=== PATIENT | female | born 1995 | race Hispanic/Latino ===

== ENCOUNTER 2021-05-15 08:31 | Inpatient (IN) | payer MEDICAID ==
[~2021-05-15 08:31] MED LIST: Bupivacaine 0.25% 10 ML SDV ONE
[2021-05-15] MEDS ORDERED: Nalbuphine 10 MG/1 ML Vial IVPUSH PRN (08:42)
[2021-05-15] MEDS ORDERED: Sodium Chloride 0.9% 10 ML Syringe FLUSH PRN (08:42)
[2021-05-15] MEDS ORDERED: Oxytocin/Lactated Ringers 10 UNIT/1,000 ML BAG IV SCH (08:45)
[2021-05-15] MEDS ORDERED: fentaNYL 100 MCG/2 ML SDV EPIDUR PRN (08:48)
[2021-05-15] MEDS ORDERED: Ondansetron 4 MG/2 ML SDV IVPUSH PRN (08:48)
[2021-05-15] MEDS ORDERED: ePHEDrine 50 MG/ML SDV IVPUSH PRN (08:48)
--- NOTE | 2021-05-15 08:50 | PCM.PREANE ---
Preanesthetic Assessment - Procedure Proposed Procedure: Epidural - Anesthesia/Transfusion/Family Hx Anesthesia History: Prior Anesthesia Without Reaction Family History of Anesthesia Reaction: No Transfusion History: No Prior Transfusion(s) Intubation History: Unknown - Review of Systems General: No Symptoms Pulmonary: No Symptoms Cardiovascular: No Symptoms Gastrointestinal: No Symptoms (GERD), Nausea, Vomiting Neurological: No Symptoms Other: Reports: None - Physical Assessment NPO Status Date: 05/14/21 NPO Status Time: 23:00 Vital Signs: HR: 93 Sat: 98% Temp: 98.5 B/P: 143/88 Resp: 20 Height: 1.63 m Weight: 83.461 kg ASA Class: 2 Mental Status: Alert & Oriented x3 Airway Class: Mallampati = 2 Dentition: Reports: Normal Dentition, Caries Thyro-Mental Finger Breadths: 3 Mouth Opening Finger Breadths: 3 ROM/Head Extension: Full Lungs: Clear to Auscultation, Normal Respiratory Effort Cardiovascular: Regular Rate, Regular Rhythm, No Murmurs - Lab Values: All labs reviewed and noted and within acceptable ranges to proceed with epidural. - Allergies Allergies/Adverse Reactions: Allergies Allergy/AdvReac Type Severity Reaction Status Date / Time No Known Allergies Allergy Verified 05/15/21 08:59 - Anesthesia Plan Pre-Op Medication Ordered: None - Acknowledgements Anesthesia Type Planned: Epidural Pt an Appropriate Candidate for the Planned Anesthesia: Yes Alternatives and Risks of Anesthesia Discussed w Pt/Guardian: Yes Pt/Guardian Understands and Agrees with Anesthesia Plan: Yes PreAnesthesia Questionnaire - CURRENT (IN HOUSE) MEDS Current Meds: Current Medications Oxytocin/Lactated Ringer's (Pitocin In Lr 10 Units/1,000 Ml) 10 unit in 1,000 mls @ 100 mls/hr IV .CONTINUOUS MIREYA Lactated Ringer's (Ringers, Lactated) 1,000 mls @ 100 mls/hr IV ASDIRECTED MIREYA Nalbuphine HCl (Nalbuphine 10 Mg/1 Ml Vial) 10 mg IVPUSH Q2H PRN PRN Reason: Pain Sodium Chloride (Sodium Chloride 0.9% 10 Ml Syringe) 10 ml FLUSH ASDIRECTED PRN PRN Reason: Keep Vein Open
[2021-05-15] MEDS ORDERED: Bupivacaine/fentaNYL/NS 100 ML Bag EPIDUR SCH (09:00)
[2021-05-15] MEDS: Lactated Ringers 1,000 ML IV SCH ×3 (09:26→10:08)
--- NOTE | 2021-05-15 10:42 | PCM.LDHP ---
<Darron Cohen - Last Filed: 05/15/21 10:42> L&D History of Present Illness - General Date of Service: 05/15/21 Admit Problem/Dx: Admission Diagnosis/Problem Admission Diagnosis/Problem 05/15/21 10:26 39 Week Gestation, spontaneous labor Source of Information: Patient History Limitations: Reports: No Limitations - History of Present Illness Introduction:: HPI:matthew Poole is a 25-year-old 1 para 0 female admitted on 05/15/2021 at 39-0/7 weeks gestational age with an RICK of 05/22/2021 for induction of labor. She arrived around 0900 hrs for admission. She reports she was woken up from contractions this morning. Contractions were felt every 5 mins and started to become more painful. She reports some leakage of fluid and that her mucus plug passed while at the hospital. heart tones are generally reassuring with good variability. [employer] Hx: Patient menarche at age 12. Her cycles are irregular ranging from 28-60 days in length. She was not on control at time of contraception and was using Clomiphene for fertility assistance. LMP 08/15/2020 which was certain. RICK of 05/22/2021 was determined by LMP. Anatomy ultrasound was conducted at 20w3d with no concerning findings. Patient denies any STI in the past. Her last pap smear was conducted in March 2020 with no abnormal findings. Course: Patient is . Patient had consistent care with Dr. Min at [facility] in [place]. She was seen on a regular basis. Weight gain is from 159 lbs at 12-2/7 weeks to 184 lbs at 38-5/7 weeks for a total weight gain of 25 pounds. Fundal height growth has been appropriate and vital signs have been stable throughout . Patient reports no allergies. Denies any other past medical conditions. She plans to attempt breast and bottle feed. She has received an epidrual Laboratory Testing in : First trimester testing showed blood is A+ with negative antibody screen. Hemoglobin was 10.5 g/dL and platelets were 360,000 at first visit. Pap test was not conducted. She is rubella immune. RPR was non reactive. Hepatitis B surface Ag, HCV, chlamydia, gonorrhea, and HIV were negative. UA was contaminated. Second and Third Trimester Testing showed a hemoglobin of 11.8g/dL, platelets of 370,000. Diabetic screen test was normal at 129. Group B strep screen was negative. Allergies: Non Reported Medications: 1. Vit-Fe Fumarate-FA 1 tablet p.o daily 2. Ferrous Sulfate 1 table p.o daily 3. Folic acid 800 mcg tablet p.o daily 4. Ondansetron 1-2 (4-8mg) p.o prn Past Medical History: None reported Past surgical History: Rhinoplasty, no issues reported with general anesthesia. Pain Score: 9 - Related Data Allergies/Adverse Reactions: Allergies Allergy/AdvReac Type Severity Reaction Status Date / Time No Known Allergies Allergy Verified 05/15/21 08:59 Past Medical History [employer] History: Reports: - Past Surgical History HEENT Surgical History: Reports: Other (See Below) Other HEENT Surgeries/Procedures: Rhinoplasty Social & Family History - Family History Family Medical History: No Pertinent Family History - Tobacco Use Tobacco Use Status *Q: Never Tobacco User - Alcohol Use Alcohol Use History: No - Recreational Drug Use Recreational Drug Use: No - Living Situation & Occupation Living situation: Reports: Occupation: Unemployed H&P Review of Systems - Review of Systems: Review Of Systems: See Below General: Reports: No Symptoms HEENT: Reports: No Symptoms Pulmonary: Reports: No Symptoms Cardiovascular: Reports: No Symptoms Gastrointestinal: Reports: Nausea, Vomiting (x3 prior to admission) Genitourinary: Reports: No Symptoms Musculoskeletal: Reports: Other (Hip pain associated with ) Skin: Reports: No Symptoms Psychiatric: Reports: No Symptoms Neurological: Reports: No Symptoms Hematologic/Lymphatic: Reports: No Symptoms Immunologic: Reports: No Symptoms L&D Exam - Exam Exam: See Below - Vital Signs Vital Signs: Last Vital Signs Temp 98.5 F 05/15/21 08:42 Pulse Resp 14 05/15/21 08:42 BP 143/88 H 05/15/21 08:42 Pulse Ox 98 05/15/21 08:42 Weight: 83.461 kg - OB Specific Fundal Height In cm: 39 Contraction Intensity: Moderate Movement: Active Heart Tones: Present Heart Rate (FHR) Variability: Moderate (6-25 bpm) - Exam General: Alert, Oriented HEENT: Conjunctiva Clear, EOMI, Hearing Intact, Mucosa Moist & [place] Neck: Supple, Trachea Midline Lungs: Clear to Auscultation, Normal Respiratory Effort Cardiovascular: Regular Rate, Regular Rhythm, Normal S1, Normal S2 GI/Abdominal Exam: Normal Bowel Sounds, Soft, Non-Tender, Other (Gravid appearing) Genitourinary: Cervical dilitation (8 cm) Back Exam: Full Range of Motion Extremities: Normal Inspection, Normal Range of Motion, Non-Tender, No Pedal Edema, Normal Capillary Refill Skin: Warm, Dry, Intact Neurological: Cranial Nerves Intact, Normal Speech, Sensation Intact Psychiatric: Alert, Normal Affect, Normal Mood - Patient Data Lab Results Last 24 hrs: Laboratory Results - last 24 hr 05/15/21 05/15/21 05/15/21 Range/Units 08:53 08:55 08:55 WBC 18.98 H (3.98-10.04) K/mm3 RBC 4.32 (3.98-5.22) M/mm3 Hgb 13.4 (11.2-15.7) gm/dl Hct 40.9 (34.1-44.9) % MCV 94.7 (79.4-94.8) fl MCH 31.0 (25.6-32.2) pg MCHC 32.8 (32.2-35.5) g/dl RDW Std Deviation 48.2 H (36.4-46.3) fL Plt Count 351 (182-369) K/mm3 MPV 10.4 (9.4-12.3) fl SARS-CoV-2 RNA (BLAS) Negative (NEGATIVE) Blood Type A POSITIVE Gel Antibody Screen Negative Result Diagrams: 05/15/21 08:55 - Problem List (1) SNOMED Code(s): 69762755 ICD Code: Z34.90 - ENCNTR FOR SUPRVSN OF NORMAL , UNSP, UNSP TRIMESTER Status: Acute Priority: Medium Current Visit: Yes Qualifiers: Weeks of gestation: 39 weeks Qualified Code(s): Z3A.39 - 39 weeks gestation of (2) Spontaneous onset of labor SNOMED Code(s): 67919322 ICD Code: [id number] - Status: Acute Priority: Medium Current Visit: Yes Orders Last 24hrs: Active Orders 24 hr Category Date Time Status Activity as Tolerated [RC] PFP Care 05/15/21 08:42 Active Communication Order [RC] ASDIRECTED Care 05/15/21 08:42 Active Heart Tones [RC] ASDIRECTED Care 05/15/21 08:43 Active Non Stress Test [RC] PER UNIT ROUTINE Care 05/15/21 08:42 Active Notify Provider [RC] ASDIRECTED Care 05/15/21 08:48 Active Notify Provider [RC] PFP Care 05/15/21 08:42 Active Notify Provider [RC] PRN Care 05/15/21 08:42 Active Oxygen Therapy [RC] ASDIRECTED Care 05/15/21 08:48 Active Peripheral IV Care [RC] . DIRECTED Care 05/15/21 08:43 Active Pulse Oximetry [RC] ASDIRECTED Care 05/15/21 08:48 Active Vital Signs [RC] PER UNIT ROUTINE Care 05/15/21 08:42 Active Regular Diet [DIET] Diet 05/15/21 Lunch Active PATIENT RETYPE [BBK] Routine Lab 05/15/21 09:59 Ordered RAPID PLASMA REAGIN,RPR [CHEM] Routine Lab 05/15/21 08:55 Received Bupivacaine/fentaNYL/NS [fentaNYL/Bupivacaine/NS 2 MCG- Med 05/15/21 09:00 Active 0.125% 100 ML] 100 ml EPIDUR ASDIRECTED Lactated Ringers [Ringers, Lactated] 1,000 ml Med 05/15/21 08:45 Active IV ASDIRECTED Nalbuphine [Nubain] Med 05/15/21 08:42 Active 10 mg IVPUSH Q2H PRN Ondansetron [Zofran] Med 05/15/21 08:48 Active 4 mg IVPUSH ONETIME PRN Oxytocin/Lactated Ringers [Pitocin in LR 10 Units/1,000 Med 05/15/21 08:45 Active ML] 10 unit in 1,000 ml IV .CONTINUOUS Phenylephrine HCl In 0.9% NaCl [Phenylephrine 1 MG/10 Med 05/15/21 08:48 Active ML-NS] 0.1 mg IVPUSH Q10M PRN Sodium Chloride 0.9% [Saline Flush] Med 05/15/21 08:42 Active 10 ml FLUSH ASDIRECTED PRN ePHEDrine [ePHEDrine sulfate] Med 05/15/21 08:48 Active 5 mg IVPUSH ASDIRECTED PRN fentaNYL [Sublimaze] Med 05/15/21 08:48 Active 100 mcg EPIDUR Q3H PRN Electronic Heart Tones Ext w TOCO [WOMSER] Oth 05/15/21 08:42 Ordered Routine Electronic Heart Tones Internal [WOMSER] Per Unit Oth 05/15/21 08:42 Ordered Routine Peripheral IV Insertion Adult [OM.PC] Routine Oth 05/15/21 08:42 Ordered Resuscitation Status Routine Resus Stat 05/15/21 08:42 Ordered Medication Orders Ephedrine Sulfate (Ephedrine 50 Mg/Ml Sdv) 5 mg IVPUSH ASDIRECTED PRN PRN Reason: Hypotension Fentanyl (Fentanyl 100 Mcg/2 Ml Sdv) 100 mcg EPIDUR Q3H PRN PRN Reason: Pain Last Admin: 05/15/21 09:25 Dose: 100 mcg Documented by: OC Fentanyl/Bupivacaine HCl (Bupivacaine/Fentanyl/Ns 100 Ml Bag) 100 ml EPIDUR ASDIRECTED [facility] Last Admin: 05/15/21 09:26 Dose: 100 ml Documented by: OC Oxytocin/Lactated Ringer's (Pitocin In Lr 10 Units/1,000 Ml) 10 unit in 1,000 mls @ 100 mls/hr IV .CONTINUOUS [facility] Lactated Ringer's (Ringers, Lactated) 1,000 mls @ 100 mls/hr IV ASDIRECTED [facility] Last Admin: 05/15/21 10:08 Dose: 100 mls/hr Documented by: Infusion: 05/15/21 10:08 Dose: 100 mls/hr Documented by: Admin: 05/15/21 10:07 Dose: 100 mls/hr Documented by: Infusion: 05/15/21 10:07 Dose: 100 mls/hr Documented by: Admin: 05/15/21 09:26 Dose: 100 mls/hr Documented by: OC Miscellaneous Medication (Phenylephrine Hcl In 0.9% Nacl 1 Mg/10 Ml Syringe) 0.1 mg IVPUSH Q10M PRN PRN Reason: Hypotension Nalbuphine HCl (Nalbuphine 10 Mg/1 Ml Vial) 10 mg IVPUSH Q2H PRN PRN Reason: Pain Ondansetron HCl (Ondansetron 4 Mg/2 Ml Sdv) 4 mg IVPUSH ONETIME PRN PRN Reason: Nausea/Vomiting Sodium Chloride (Sodium Chloride 0.9% 10 Ml Syringe) 10 ml FLUSH ASDIRECTED PRN PRN Reason: Keep Vein Open <Amina Gomez - Last Filed: 05/15/21 12:17> L&D History of Present Illness - General Admit Problem/Dx: Patient Status Order with Admit Dx/Problem 05/15/21 10:54 Admission Status [Patient Status] [ADT] Routine Admission Diagnosis/Problem Admission Diagnosis/Problem L&D Exam - Vital Signs Vital Signs: Last Vital Signs Temp 36.9 C 05/15/21 08:42 Pulse Resp 14 05/15/21 08:42 BP 143/88 H 05/15/21 08:42 Pulse Ox 98 05/15/21 08:42 - Patient Data Lab Results Last 24 hrs: Laboratory Results - last 24 hr 05/15/21 05/15/21 05/15/21 Range/Units 08:53 08:55 08:55 WBC 18.98 H (3.98-10.04) K/mm3 RBC 4.32 (3.98-5.22) M/mm3 Hgb 13.4 (11.2-15.7) gm/dl Hct 40.9 (34.1-44.9) % MCV 94.7 (79.4-94.8) fl MCH 31.0 (25.6-32.2) pg MCHC 32.8 (32.2-35.5) g/dl RDW Std Deviation 48.2 H (36.4-46.3) fL Plt Count 351 (182-369) K/mm3 MPV 10.4 (9.4-12.3) fl SARS-CoV-2 RNA (BLAS) Negative (NEGATIVE) Blood Type A POSITIVE Gel Antibody Screen Negative Result Diagrams: 05/15/21 08:55 Problem List Initiated/Reviewed/Updated: Yes Orders Last 24hrs: Active Orders 24 hr Category Date Time Status Admission Status [Patient Status] [ADT] Routine ADT 05/15/21 10:54 Active Activity as Tolerated [RC] PFP Care 05/15/21 08:42 Active Communication Order [RC] ASDIRECTED Care 05/15/21 08:42 Active Non Stress Test [RC] PER UNIT ROUTINE Care 05/15/21 08:42 Active Notify Provider [RC] ASDIRECTED Care 05/15/21 08:48 Active Notify Provider [RC] PFP Care 05/15/21 08:42 Active Notify Provider [RC] PRN Care 05/15/21 08:42 Active Oxygen Therapy [RC] ASDIRECTED Care 05/15/21 08:48 Active Peripheral IV Care [RC] . DIRECTED Care 05/15/21 08:43 Active Pulse Oximetry [RC] ASDIRECTED Care 05/15/21 08:48 Active Vital Signs [RC] PER UNIT ROUTINE Care 05/15/21 08:42 Active Regular Diet [DIET] Diet 05/15/21 Lunch Active PATIENT RETYPE [BBK] Routine Lab 05/15/21 09:59 Ordered RAPID PLASMA REAGIN,RPR [CHEM] Routine Lab 05/15/21 08:55 Received Bupivacaine/fentaNYL/NS [fentaNYL/Bupivacaine/NS 2 MCG- Med 05/15/21 09:00 Active 0.125% 100 ML] 100 ml EPIDUR ASDIRECTED Lactated Ringers [Ringers, Lactated] 1,000 ml Med 05/15/21 08:45 Active IV ASDIRECTED Nalbuphine [Nubain] Med 05/15/21 08:42 Active 10 mg IVPUSH Q2H PRN Ondansetron [Zofran] Med 05/15/21 08:48 Active 4 mg IVPUSH ONETIME PRN Oxytocin/Lactated Ringers [Pitocin in LR 10 Units/1,000 Med 05/15/21 08:45 Active ML] 10 unit in 1,000 ml IV .CONTINUOUS Phenylephrine HCl In 0.9% NaCl [Phenylephrine 1 MG/10 Med 05/15/21 08:48 Active ML-NS] 0.1 mg IVPUSH Q10M PRN Sodium Chloride 0.9% [Saline Flush] Med 05/15/21 08:42 Active 10 ml FLUSH ASDIRECTED PRN ePHEDrine [ePHEDrine sulfate] Med 05/15/21 08:48 Active 5 mg IVPUSH ASDIRECTED PRN fentaNYL [Sublimaze] Med 05/15/21 08:48 Active 100 mcg EPIDUR Q3H PRN Electronic Heart Tones Ext w TOCO [WOMSER] Oth 05/15/21 08:42 Ordered Routine Electronic Heart Tones Internal [WOMSER] Per Unit Oth 05/15/21 08:42 Ordered Routine Peripheral IV Insertion Adult [OM.PC] Routine Oth 05/15/21 08:42 Ordered Resuscitation Status Routine Resus Stat 05/15/21 08:42 Ordered Medication Orders Ephedrine Sulfate (Ephedrine 50 Mg/Ml Sdv) 5 mg IVPUSH ASDIRECTED PRN PRN Reason: Hypotension Fentanyl (Fentanyl 100 Mcg/2 Ml Sdv) 100 mcg EPIDUR Q3H PRN PRN Reason: Pain Last Admin: 05/15/21 09:25 Dose: 100 mcg Documented by: OC Fentanyl/Bupivacaine HCl (Bupivacaine/Fentanyl/Ns 100 Ml Bag) 100 ml EPIDUR ASDIRECTED MIREYA Last Admin: 05/15/21 09:26 Dose: 100 ml Documented by: OC Oxytocin/Lactated Ringer's (Pitocin In Lr 10 Units/1,000 Ml) 10 unit in 1,000 mls @ 100 mls/hr IV .CONTINUOUS [facility] Lactated Ringer's (Ringers, Lactated) 1,000 mls @ 100 mls/hr IV ASDIRECTED [facility] Last Admin: 05/15/21 10:08 Dose: 100 mls/hr Documented by: Infusion: 05/15/21 10:08 Dose: 100 mls/hr Documented by: Admin: 05/15/21 10:07 Dose: 100 mls/hr Documented by: Infusion: 05/15/21 10:07 Dose: 100 mls/hr Documented by: Admin: 05/15/21 09:26 Dose: 100 mls/hr Documented by: OC Miscellaneous Medication (Phenylephrine Hcl In 0.9% Nacl 1 Mg/10 Ml Syringe) 0.1 mg IVPUSH Q10M PRN PRN Reason: Hypotension Nalbuphine HCl (Nalbuphine 10 Mg/1 Ml Vial) 10 mg IVPUSH Q2H PRN PRN Reason: Pain Ondansetron HCl (Ondansetron 4 Mg/2 Ml Sdv) 4 mg IVPUSH ONETIME PRN PRN Reason: Nausea/Vomiting Sodium Chloride (Sodium Chloride 0.9% 10 Ml Syringe) 10 ml FLUSH ASDIRECTED PRN PRN Reason: Keep Vein Open Assessment/Plan Comment:: Term labor. - Admit -Labs and IV fluids. - Continuous monitoring -Desires epidural - Anticipate unless otherwise indicated.
--- NOTE | 2021-05-15 13:46 | PCM.SN.2 ---
- Free Text/Narrative Note: Stage I - patient presented in active labor. 8 cm. Desired epidural for anesthesia. Progressed to complete with overall reassuring heart tones. Stage II - of viable male, weight 7#3 oz, 7/8 apgars at 1318. Head delivered in controlled manner over intact perineum, body and shoulders atraumatically. To maternal abdomen. Cord clamped and cut and to warmer. Cord blood collected. Stage III - of intact placenta. 3vc. Small first degree laceration repaired with 3-0 vicryl. EBL 150. Time Documentation
[2021-05-15] MEDS ORDERED: Benzocaine/Menthol 20%-0.5% Spray 78 GM Cannister TOP PRN (14:34)
[2021-05-15] MEDS: Witch Hazel Medicated Pads 40/Jar TOP PRN ×2 (15:47→23:31)
[2021-05-15] MEDS: Ibuprofen 600 MG Tab PO PRN (21:55)
[2021-05-16] MEDS: Ibuprofen 600 MG Tab PO PRN ×2 (04:54→13:35)
--- NOTE | 2021-05-16 09:52 | PCM48HPAN ---
Post Anesthesia Note - EVALUATION WITHIN 48HRS OF ANESTHETIC Vital Signs in Normal Range: Yes Patient Participated in Evaluation: Yes Respiratory Function Stable: Yes Airway Patent: Yes Cardiovascular Function Stable: Yes Hydration Status Stable: Yes Pain Control Satisfactory: Yes Nausea and Vomiting Control Satisfactory: Yes Mental Status Recovered: Yes Vital Signs: Last Vital Signs Temp 36.7 C 05/16/21 01:30 Pulse 94 05/16/21 01:30 Resp 15 05/16/21 01:30 BP 116/65 05/16/21 01:30 Pulse Ox 98 05/16/21 01:30
--- NOTE | 2021-05-19 10:48 | PCM.DCSUM1 ---
Discharge Summary - Hospital Course Brief History: admitted in active labor. Uncomplicated delivery and . Diagnosis: Stroke: No - Discharge Data Discharge Date: 05/16/21 Discharge Disposition: Home, Self-Care 01 Condition: Good - Referral to Home Health Primary Care Physician: Amina Gomez MD - Patient Instructions Diet: Usual Diet as Tolerated Activity: No Strenuous Activities Driving: May Drive Today Showering/Bathing: May Shower Wound/Incision Care: Keep Operative Site/Wound Site Clean and Dry Notify Provider of: Fever, Increased Pain, Swelling and Redness, Drainage, N ausea and/or Vomiting - Discharge Plan *PRESCRIPTION DRUG MONITORING PROGRAM REVIEWED*: No *COPY OF PRESCRIPTION DRUG MONITORING REPORT IN PATIENT AKSHAT: No Home Medications: Home Meds Acyclovir 400 mg PO TID 05/15/21 [History] Pnv No.95/Ferrous Fum/Folic AC [ Tablet] 1 each PO DAILY 05/15/21 [History] Patient Handouts: Care After Vaginal Delivery Referrals: Sue Min MD [Physician] - (2 weeks) - Discharge Summary/Plan Comment DC Time >30 min.: No Total # of Minutes for Discharge Time: 15 - General Info Date of Service: 05/16/21 Functional Status: Reports: Pain Controlled - Review of Systems General: Reports: No Symptoms HEENT: Reports: No Symptoms Pulmonary: Reports: No Symptoms Cardiovascular: Reports: No Symptoms Gastrointestinal: Reports: No Symptoms Genitourinary: Reports: No Symptoms Musculoskeletal: Reports: No Symptoms Skin: Reports: No Symptoms Neurological: Reports: No Symptoms Psychiatric: Reports: No Symptoms - Patient Data Vitals - Most Recent: Last Vital Signs Temp 36.9 C 05/16/21 09:00 Pulse 93 05/16/21 09:00 Resp 16 05/16/21 09:00 BP 134/78 05/16/21 09:00 Pulse Ox 98 05/16/21 09:00 Weight - Most Recent: 83.461 kg Med Orders - Current: Current Medications Discontinued Medications Benzocaine/Menthol (Benzocaine/Menthol 20%-0.5% Brush 78 Gm Cannister) 0 gm TOP ASDIRECTED PRN PRN Reason: Perineal Comfort Measure Last Admin: 05/15/21 15:47 Dose: 1 can Documented by: Bupivacaine HCl (Bupivacaine 0.25% 10 Ml Sdv) 10 ml .ROUTE .STK-MED ONE Stop: 05/15/21 00:01 Ephedrine Sulfate (Ephedrine 50 Mg/Ml Sdv) 5 mg IVPUSH ASDIRECTED PRN PRN Reason: Hypotension Fentanyl (Fentanyl 100 Mcg/2 Ml Sdv) 100 mcg EPIDUR Q3H PRN PRN Reason: Pain Last Admin: 05/15/21 09:25 Dose: 100 mcg Documented by: Fentanyl/Bupivacaine HCl (Bupivacaine/Fentanyl/Ns 100 Ml Bag) 100 ml EPIDUR ASDIRECTED MIREYA Last Admin: 05/15/21 09:26 Dose: 100 ml Documented by: Oxytocin/Lactated Ringer's (Pitocin In Lr 10 Units/1,000 Ml) 10 unit in 1,000 mls @ 100 mls/hr IV .CONTINUOUS MIREYA Last Admin: 05/15/21 15:47 Dose: 100 mls/hr Documented by: Lactated Ringer's (Ringers, Lactated) 1,000 mls @ 100 mls/hr IV ASDIRECTED MIREYA Last Admin: 05/15/21 10:08 Dose: 100 mls/hr Documented by: Ibuprofen (Ibuprofen 600 Mg Tab) 600 mg PO Q6H PRN PRN Reason: Mild pain or fever Last Admin: 05/16/21 13:35 Dose: 600 mg Documented by: Miscellaneous Medication (Phenylephrine Hcl In 0.9% Nacl 1 Mg/10 Ml Syringe) 0.1 mg IVPUSH Q10M PRN PRN Reason: Hypotension Nalbuphine HCl (Nalbuphine 10 Mg/1 Ml Vial) 10 mg IVPUSH Q2H PRN PRN Reason: Pain Ondansetron HCl (Ondansetron 4 Mg/2 Ml Sdv) 4 mg IVPUSH ONETIME PRN PRN Reason: Nausea/Vomiting Sodium Chloride (Sodium Chloride 0.9% 10 Ml Syringe) 10 ml FLUSH ASDIRECTED PRN PRN Reason: Keep Vein Open Witch Sarah (Witch Sarah Medicated Pads 40/Jar) 1 pad TOP ASDIRECTED PRN PRN Reason: Perineal Comfort Measure Last Admin: 05/15/21 23:31 Dose: 1 tub Documented by: - Exam General: Reports: Alert, Oriented HEENT: Reports: Pupils Equal, Pupils Reactive, EOMI, Mucous Membr. Moist/[place] Neck: Reports: Supple Lungs: Reports: Clear to Auscultation, Normal Respiratory Effort Cardiovascular: Reports: Regular Rate, Regular Rhythm GI/Abdominal Exam: Normal Bowel Sounds Rectal (Female) Exam: Normal Exam, Normal Rectal Tone Back Exam: Reports: Normal Inspection, Full Range of Motion Extremities: Normal Inspection, Normal Range of Motion, Non-Tender, No Pedal Edema, Normal Capillary Refill Skin: Reports: Warm, Dry, Intact Wound/Incisions: Reports: Healing Well Neurological: Reports: No New Focal Deficit Psy/Mental Status: Reports: Alert, Normal Affect, Normal Mood
== END 2021-05-16 16:15 | disposition home or self-care (01) | DRG 807 ==
LOC: JD.OBCHECK 08:31 → JD.OB 08:40 → JD.OBCHECK 10:54 → JD.OB 11:00 → OBSVTOIN 13:18 → JD.OB 13:19
PROVIDERS: ADMIT Obstetrics & Gynecology; ATTEND Obstetrics & Gynecology
PROC: 10E0XZZ Delivery of Products of Conception, External Approach (ICD-10-PCS; principal; 2021-05-15)
PROC: 0HQ9XZZ Repair Perineum Skin, External Approach (ICD-10-PCS; 2021-05-15)
PROC: 3E0R3BZ Introduction of Anesthetic Agent into Spinal Canal, Percutaneous Approach (ICD-10-PCS; 2021-05-15)
DX: O70.0 First degree perineal laceration during delivery (principal); Z37.0 Single live birth; Z3A.39 39 weeks gestation of pregnancy; Z20.822 Contact with and (suspected) exposure to COVID-19
CPT/HCPCS: 01967; 36415; 51702; 59025; 59409; 80053; 85025; 85027; 86592; 86850; 86900; 86901; A9270-GY; J2590; J3010; J3490; J7120; U0002

== ENCOUNTER 2024-05-27 09:39 | Inpatient (IN) | payer BC, MEDICAID ==
[~2024-05-27 09:39] MED LIST changes: -Bupivacaine 0.25% 10 ML SDV ONE; +Bupivacaine 0.75%/D5W 2 ML Amp ONE; +Sodium Chloride 0.9% 10 ML SDV ONE
[2024-05-27] MEDS ORDERED: Lidocaine 1% 50 ML MDV INJECT PRN (10:17)
[2024-05-27] MEDS ORDERED: Ondansetron 4 MG/2 ML SDV IVPUSH PRN (10:17)
[2024-05-27] MEDS ORDERED: Nalbuphine 10 MG/1 ML Vial IVPUSH PRN (10:17)
[2024-05-27] MEDS: Lactated Ringers 1,000 ML IV SCH (10:30)
[2024-05-27] MEDS ORDERED: Oxytocin/0.9 % Sodium Chloride 30 UNIT/500 ML BAG IV SCH (10:30)
[2024-05-27 10:36] LABS: BASOPHILS PERCENT AUTO 0.3 % (0.0-1.0); EOSINOPHILS PERCENT AUTO 0.3 % (0.0-6.0); HEMOGLOBIN 12.9 gm/dl (12.0-16.0); IMMATURE GRAN ABSOLUTE AUTO 0.06 K/mm3 (0.00-0.05); IMMATURE GRAN PERCENT AUTO 0.5 % (0.0-0.4); LYMPHOCYTES ABSOLUTE AUTO 2.1 K/mm3 (1.0-4.8); LYMPHOCYTES PERCENT AUTO 17.6 % (24.0-44.0); MEAN CORPUSCULAR HGB CONC 33.1 g/dl (32.0-36.0); MEAN CORPUSCULAR VOLUME 90.7 fl (83.0-99.0); MEAN PLATELET VOLUME 10.5 fl (9.4-12.3); MONOCYTES ABSOLUTE AUTO 0.8 K/mm3 (0.0-0.8); MONOCYTES PERCENT AUTO 6.4 % (0.0-8.0); NEUTROPHILS ABSOLUTE AUTO 8.8 K/mm3 (1.8-7.7); NEUTROPHILS PERCENT AUTO 74.9 % (41.0-71.0); PLATELET COUNT,PLT 286 K/mm3 (150-400)
[2024-05-27] MEDS ORDERED: diphenhydrAMINE 50 MG/ML SDV IVPUSH PRN (10:47)
[2024-05-27] MEDS ORDERED: ePHEDrine 50 MG/ML SDV IVPUSH PRN (10:47)
[2024-05-27] MEDS: fentaNYL 100 MCG/2 ML SDV EPIDUR PRN (11:01)
[2024-05-27] MEDS: Bupivacaine/fentaNYL/NS 100 ML Bag EPIDUR PRN (11:03)
[2024-05-27] MEDS: Oxytocin/0.9 % Sodium Chloride 30 UNIT/500 ML BAG IV SCH (14:42)
[2024-05-27] MEDS: Witch Hazel Medicated Pads 40/Jar TOP PRN (17:07)
[2024-05-27] MEDS: Ibuprofen 600 MG Tab PO SCH (17:07)
[2024-05-27] MEDS: Benzocaine/Menthol 20%-0.5% Spray 78 GM Cannister TOP PRN (17:07)
[2024-05-28] MEDS: Acetaminophen 325 MG Tab PO PRN (00:32)
[2024-05-28] MEDS: FLU (Flulaval Triv) 24-25(6MOS UP)/PF 45 MCG/0.5 ML Syringe IM ONE (15:48)
[2024-05-28] MEDS: Measles, Mumps & Rubella Vaccine 0.5 ML SDV SUBCUT ONE (15:50)
== END 2024-05-28 16:22 | disposition home or self-care (01) | DRG 560 ==
LOC: JD.OB 09:39 → OBSVTOIN 14:41 → JD.OB 14:42
PROVIDERS: ADMIT Obstetrics & Gynecology; ATTEND Obstetrics & Gynecology
PROC: 10E0XZZ Delivery of Products of Conception, External Approach (ICD-10-PCS; principal; 2024-05-27)
PROC: 3E0234Z Introduction of Serum, Toxoid and Vaccine into Muscle, Percutaneous Approach (ICD-10-PCS; 2024-05-27)
DX: O24.420 Gestational diabetes mellitus in childbirth, diet controlled (principal); Z37.0 Single live birth; Z3A.37 37 weeks gestation of pregnancy; Z23 Encounter for immunization
CPT/HCPCS: 36415; 51701; 59025; 59409; 82947; 85025; 86592; 90471; 90686; 90707; A9270-GY; C1758; J3010; J3490; J7120; J7999